=== PATIENT | male | born 1955 | race Caucasian/White ===

== ENCOUNTER 2020-07-31 23:06 | Emergency (ER) | payer OTHER ==
[~2020-07-31] VITALS: Ht 175.3 cm; Wt 72.6 kg
[~2020-07-31 23:06] MED LIST: ASPIR 8181 MG PO; COMBIVENT IN; HYDROCODONE-AP1 EAC6 PO; NORCO 5-325 TA1 EACH PO; NORFLEX100 MG PO; PREDNISONE 20 M20 MG PO; PREDNISONE50 MG PO; SPIRIVA INH; SYMBICORT; VENTOLIN17 GM INH; ZPAK PO
[2020-07-31] MEDS ORDERED: PREDNISONE 5 MG5 M1 PO (23:25)
[2020-07-31] MEDS ORDERED: ATIVAN0.5 M1 PO (23:26)
[2020-07-31] MEDS ORDERED: APAP650 PO (23:27)
[2020-08-01] MEDS ORDERED: PREDNISONE 10 M10 M1 PO (01:39)
[2020-08-01 03:11] VITALS: BP 114/96
== END 2020-08-01 03:11 | disposition home or self-care (01) ==
LOC: ER 23:06
DX: J44.1 Chronic obstructive pulmonary disease with (acute) exacerbation (principal); I25.2 Old myocardial infarction; Z79.899 Other long term (current) drug therapy; Z88.5 Allergy status to narcotic agent; Z87.891 Personal history of nicotine dependence